=== PATIENT | male | born 1995 | race American Indian/Alaskan Native ===

== ENCOUNTER 2018-09-04 16:18 | Emergency (ER) | payer SELFPAY ==
[2018-09-04 16:27] VITALS: BP 134/77
[2018-09-04] MEDS ORDERED: IBUPROFEN PO ONE (16:28)
== END 2018-09-04 19:16 | disposition left against medical advice (07) ==
LOC: ED 16:18
DX: R51 Headache (principal); Z53.21 Procedure and treatment not carried out due to patient leaving prior to being seen by health care provider